=== PATIENT | male | born 1980 | race African-American/Black ===

== ENCOUNTER 2017-08-15 01:32 | Emergency (ER) | payer OTHER ==
[~2017-08-15] VITALS: Ht 167.6 cm; Wt 63.6 kg
[2017-08-15 02:21] LABS: ADD MIUA? YES; BILIRUBIN NEGATIVE; BLOOD MODERATE; COLOR YELLOW ((YELLOW)); GLUCOSE (STRIP) NEGATIVE; KETONES 5; LEUKOCYTES LARGE; NITRITE NEGATIVE; PROTEIN (STRIP) 30; SPECIFIC GRAVITY 1.032 (1.000-1.030); UROBILINOGEN 0.2 MG/DL (0.2-1.0)
[2017-08-15 02:39] LABS: EPITHELIAL CELLS NONE SEEN /HPF; RED BLOOD CELLS 20-30 /HPF (0-5); WHITE BLOOD CELLS TNTC /HPF (0-5)
[2017-08-15 02:40] LABS: BACTERIA 1+ /HPF; CASTS NONE SEEN /LPF; CRYSTALS NONE SEEN; MUCUS NONE SEEN /LPF
[2017-08-15 04:34] LABS: HEMATOCRIT 40.1 % (38.0-50.0); MCH 31.5 PG (29.0-34.0); MCHC 34.7 G/DL (30.0-36.0); MCV 90.9 FL (86-99); MEAN PLAT.VOLUME 11.2 uM^3 (9.0-12.4); PLATELET COUNT 151 K/uL (156-360); RBC DIS.WIDTH-CV 12.4 % (11.8-14.6); RBC DIS.WIDTH-SD 41.4 % (39-53); RED BLOOD COUNT 4.41 M/uL (4.00-5.50); WHITE BLOOD COUNT 5.5 K/uL (4.1-10.2)
[2017-08-15 04:46] LABS: CHLORIDE 105 mEq/L (99-109); POTASSIUM 4.2 mEq/L (3.7-5.4); SODIUM 139 mEq/L (136-147)
[2017-08-15 04:47] LABS: GLUCOSE 100 mg/dL (70-99)
[2017-08-15 04:49] LABS: ANION GAP 10 MEQ/L (2-14)
[2017-08-15 04:51] LABS: GFR ESTIMATE (CALCULATED) > 59 mL/min/ (58.99-99999)
[2017-08-15 04:52] LABS: UREA NITROGEN (BUN) 19 mg/dL (9-23)
[2017-08-15] MEDS ORDERED: CIPRO500 MG PO (05:00)
[2017-08-15 05:19] VITALS: BP 119/63
== END 2017-08-15 05:28 | disposition home or self-care (01) ==
LOC: EME 01:32
PROVIDERS: Physician Assistant
DX: N34.2 Other urethritis (principal); Z21 Asymptomatic human immunodeficiency virus [HIV] infection status
CPT/HCPCS: 80048; 81003; 85027; J0696